=== PATIENT | male | born 1975 | race Caucasian/White ===

== ENCOUNTER 2025-03-09 10:42 | Outpatient (REF) | payer BC, SELFPAY ==
[2025-03-09 13:20] LABS: MANUAL DIFF FLAG NO
[2025-03-09 13:42] LABS: Hemoglobin A1C 98.5726 umol/L; Total Hemoglobin (HGBA1C) 3710.1914 umol/L
[2025-03-09 13:50] LABS: Hematocrit 39.6 % (42.0-52.0); Hemoglobin 14.8 g/dl (14.0-18.0); Imm Gran Abs Auto 0.03 X10*3/uL (0.00-0.03); Imm Gran Pct Auto 0.5 % (0.0-0.4); Lymphocytes Absolute Auto 1.9 X10*3/uL (1.2-4.9); Mean Corpuscular HGB Conc 37.4 g/dl (31.0-36.0); Mean Corpuscular Hemoglobin 32.3 pg (27.0-33.0); Mean Corpuscular Volume 86.5 fL (80.0-98.0); NRBC Abs Auto 0.000 X10*3/uL (0.0-0.012); NRBC Pct Auto 0.0 /100WBC (0.0-0.2); Platelet Count 172 X10*3/uL (160-400); Red Blood Count 4.58 X10*6/uL (4.60-5.80); White Blood Count 6.0 X10*3/uL (4.8-10.8)
[2025-03-09 14:16] LABS: Cholesterol 195 mg/dL (<200); HDL Cholesterol 44 mg/dL (>40); Triglycerides 109 mg/dL (<150)
[2025-03-09 14:19] LABS: Thyroid Stimulating Hormone 1.70 uIU/mL (0.32-4.0)
[2025-03-09 14:23] LABS: Prostate Specific Antigen 0.37 ng/mL (<0.05-4.0)
== END 2025-03-09 10:43 | disposition home or self-care (01) ==
LOC: HO.MANLDS 10:42
PROVIDERS: Visit Provider Internal Medicine
DX: Z12.5 Encounter for screening for malignant neoplasm of prostate (principal); Z13.1 Encounter for screening for diabetes mellitus; I10 Essential (primary) hypertension
CPT/HCPCS: 36415; 80061; 83036; 84153; 84443; 85025